=== PATIENT | male | born 1960 | race Caucasian/White ===

== ENCOUNTER 2017-04-19 17:10 | Emergency (ER) | payer OTHER ==
[~2017-04-19] VITALS: Ht 188 cm; Wt 143.7 kg
[~2017-04-19 17:10] MED LIST: GEMFIBROZIL600 MG PO; INDOCIN50 MG PO; NIASPAN,SLO-N1000 MG PO; ZESTRIL5 MG PO; ZYLOPRIM150 MG PO
[2017-04-19 19:58] VITALS: BP 149/98
== END 2017-04-19 19:59 | disposition home or self-care (01) ==
LOC: EME 17:10
PROC: 0HQJXZZ Repair Left Upper Leg Skin, External Approach (ICD-10-PCS; principal; 2017-04-19)
DX: S71.112A Laceration without foreign body, left thigh, initial encounter (principal); W31.2XXA Contact with powered woodworking and forming machines, initial encounter
CPT/HCPCS: 99281; 99284